=== PATIENT | female | born 1975 | race Two or more races ===

== ENCOUNTER 2019-03-01 12:41 | Inpatient (IN) | payer OTHER ==
[~2019-03-01] VITALS: Ht 160 cm; Wt 78.0 kg
[2019-03-01] MEDS ORDERED: ZOFRAN PO (13:28)
[2019-03-01] MEDS ORDERED: ULTRAM50 MG PO (13:28)
[2019-03-01] MEDS ORDERED: MULTIPLE VITAM1 EACH PO (13:29)
[2019-03-01] MEDS ORDERED: PROTONIX40 M1 PO (13:29)
[2019-03-13] MEDS ORDERED: ZOFRAN8 MG PO (08:06)
[2019-03-20] MEDS ORDERED: FLUCONAZOLE100 MG PO (09:54)
[2019-03-20] MEDS ORDERED: TRAM1TAB98 PO (09:54)
[2019-03-20] MEDS ORDERED: HYOSCYAMINE0.125 M1 SL (09:55)
== END 2019-03-20 13:12 | disposition home or self-care (01) | DRG 330 ==
LOC: O/R 03-02 15:15 → SURG 03-13 15:06 → O/R 03-13 15:15 → SURG 03-15 10:34
PROVIDERS: Urology; ADMIT Surgery
PROC: 0D1B4Z4 Bypass Ileum to Cutaneous, Percutaneous Endoscopic Approach (ICD-10-PCS; 2019-03-13)
PROC: 0TB74ZZ Excision of Left Ureter, Percutaneous Endoscopic Approach (ICD-10-PCS; 2019-03-13)
PROC: 0T778DZ Dilation of Left Ureter with Intraluminal Device, Via Natural or Artificial Opening Endoscopic (ICD-10-PCS; 2019-03-13)
PROC: 0DJD8ZZ Inspection of Lower Intestinal Tract, Via Natural or Artificial Opening Endoscopic (ICD-10-PCS; 2019-03-13)
PROC: 0DTN4ZZ Resection of Sigmoid Colon, Percutaneous Endoscopic Approach (ICD-10-PCS; principal; 2019-03-13 15:45)
PROC: 07TC4ZZ Resection of Pelvis Lymphatic, Percutaneous Endoscopic Approach (ICD-10-PCS; 2019-03-13 15:45)
DX: C19 Malignant neoplasm of rectosigmoid junction (principal); C79.19 Secondary malignant neoplasm of other urinary organs; N30.01 Acute cystitis with hematuria; B37.41 Candidal cystitis and urethritis; F43.22 Adjustment disorder with anxiety; R33.8 Other retention of urine; K63.89 Other specified diseases of intestine; I11.9 Hypertensive heart disease without heart failure; D50.0 Iron deficiency anemia secondary to blood loss (chronic); E66.09 Other obesity due to excess calories

== ENCOUNTER 2019-03-02 06:40 | Day surgery (SDC) | payer OTHER ==
[~2019-03-02 06:40] MED LIST: MULTIPLE VITAM1 EACH PO; PROTONIX40 M1 PO; ULTRAM50 MG PO; ZOFRAN PO
== END 2019-03-02 12:55 | disposition home or self-care (01) ==
LOC: AMB-ENDOS 06:40
DX: C20 Malignant neoplasm of rectum (principal); K64.8 Other hemorrhoids; K62.7 Radiation proctitis

== ENCOUNTER 2019-04-17 16:44 | Emergency (ER) | payer OTHER ==
[~2019-04-17] VITALS: Ht 160 cm; Wt 71.2 kg
[~2019-04-17 16:44] MED LIST changes: +FLUCONAZOLE100 MG PO; +HYOSCYAMINE0.125 M1 SL; +TRAM1TAB98 PO; +ZOFRAN8 MG PO
[2019-04-17] MEDS ORDERED: LISINOPRIL10 MG PO (17:06)
== END 2019-04-17 21:06 | disposition home or self-care (01) ==
LOC: ER 16:44
DX: N30.81 Other cystitis with hematuria (principal)

== ENCOUNTER 2019-04-29 04:56 | Inpatient (IN) | payer OTHER ==
[~2019-04-29] VITALS: Ht 160 cm; Wt 66.7 kg
[~2019-04-29 04:56] MED LIST changes: +LISINOPRIL10 MG PO
== END 2019-05-01 16:22 | disposition home or self-care (01) | DRG 389 ==
LOC: ER 04:56 → SURH 09:34
PROVIDERS: ADMIT Surgery
PROC: BW21ZZZ Computerized Tomography (CT Scan) of Abdomen and Pelvis (ICD-10-PCS; principal; 2019-04-29)
DX: K56.690 Other partial intestinal obstruction (principal); N39.0 Urinary tract infection, site not specified; C20 Malignant neoplasm of rectum; B96.29 Other Escherichia coli [E. coli] as the cause of diseases classified elsewhere; B95.2 Enterococcus as the cause of diseases classified elsewhere; N30.81 Other cystitis with hematuria; D50.0 Iron deficiency anemia secondary to blood loss (chronic); I11.9 Hypertensive heart disease without heart failure

== ENCOUNTER 2019-05-16 17:35 | Emergency (ER) | payer OTHER ==
[~2019-05-16] VITALS: Ht 160 cm; Wt 69.9 kg
[2019-05-16] MEDS ORDERED: ZOFRAN8 MG (17:52)
[2019-05-16] MEDS ORDERED: PEPCID AC20 MG (17:53)
== END 2019-05-16 22:47 | disposition home or self-care (01) ==
LOC: ER 17:35
DX: N39.0 Urinary tract infection, site not specified (principal); R31.0 Gross hematuria

== ENCOUNTER 2019-05-22 12:54 | Inpatient (IN) | payer OTHER ==
[~2019-05-22] VITALS: Ht 160 cm; Wt 66.7 kg
[~2019-05-22 12:54] MED LIST changes: +PEPCID AC20 MG; +ZOFRAN8 MG
[2019-05-29] MEDS ORDERED: Vitamin B-6 PO (13:02)
[2019-05-29] MEDS ORDERED: INTEGRA F CAPS1 EACH PO (13:02)
[2019-05-29] MEDS ORDERED: FLUCONAZOLE200 MG PO (13:02)
[2019-05-29] MEDS ORDERED: PEPCID AC20 MG PO (13:02)
[2019-05-29] MEDS ORDERED: INTESTINEX680 M1 PO (13:02)
[2019-05-29] MEDS ORDERED: Neurin-Sl Tablet Sl SL (13:02)
== END 2019-05-29 14:24 | disposition home or self-care (01) | DRG 660 ==
LOC: ER 12:54 → SURH 18:38
PROVIDERS: ADMIT Internal Medicine Geriatric Medicine
PROC: 0T778DZ Dilation of Left Ureter with Intraluminal Device, Via Natural or Artificial Opening Endoscopic (ICD-10-PCS; principal; 2019-05-22)
PROC: 0TP98DZ Removal of Intraluminal Device from Ureter, Via Natural or Artificial Opening Endoscopic (ICD-10-PCS; 2019-05-22)
PROC: BT1FZZZ Fluoroscopy of Left Kidney, Ureter and Bladder (ICD-10-PCS; 2019-05-22)
PROC: 8E0ZXY6 Isolation (ICD-10-PCS; 2019-05-22)
DX: T83.518A Infection and inflammatory reaction due to other urinary catheter, initial encounter (principal); B37.49 Other urogenital candidiasis; C18.8 Malignant neoplasm of overlapping sites of colon; E87.0 Hyperosmolality and hypernatremia; Z90.49 Acquired absence of other specified parts of digestive tract; D50.9 Iron deficiency anemia, unspecified; Z03.818 Encounter for observation for suspected exposure to other biological agents ruled out; I11.9 Hypertensive heart disease without heart failure
CPT/HCPCS: 74182

== ENCOUNTER 2020-06-07 21:53 | Inpatient (IN) | payer OTHER ==
[~2020-06-07] VITALS: Ht 160 cm; Wt 46.7 kg
[~2020-06-07 21:53] MED LIST changes: +FLUCONAZOLE200 MG PO; +INTEGRA F CAPS1 EACH PO; +INTESTINEX680 M1 PO; +Neurin-Sl Tablet Sl SL; +PEPCID AC20 MG PO; +Vitamin B-6 PO
[2020-06-07] MEDS ORDERED: MORPHINE SULFAT15 MG PO (22:11)
[2020-06-12] MEDS ORDERED: LISINOPRIL10 MG PO (14:07)
[2020-06-12] MEDS ORDERED: Neurin-Sl Tablet Sl SL (14:07)
[2020-06-12] MEDS ORDERED: INTEGRA F CAPS1 EACH PO (14:07)
[2020-06-12] MEDS ORDERED: PYRIDOXINE HCL100 MG PO (14:07)
[2020-06-12] MEDS ORDERED: PEPCID AC20 MG PO (14:07)
== END 2020-06-12 15:26 | disposition home or self-care (01) | DRG 378 ==
LOC: ER 21:53 → SURH 06-08 16:57
PROVIDERS: ADMIT Internal Medicine Geriatric Medicine; ATTEND Internal Medicine Geriatric Medicine
PROC: BW210ZZ Computerized Tomography (CT Scan) of Abdomen and Pelvis using High Osmolar Contrast (ICD-10-PCS; 2020-06-11)
PROC: 0DJD8ZZ Inspection of Lower Intestinal Tract, Via Natural or Artificial Opening Endoscopic (ICD-10-PCS; principal; 2020-06-12)
DX: K62.5 Hemorrhage of anus and rectum (principal); C20 Malignant neoplasm of rectum; C79.51 Secondary malignant neoplasm of bone; K62.89 Other specified diseases of anus and rectum; N13.5 Crossing vessel and stricture of ureter without hydronephrosis; G89.3 Neoplasm related pain (acute) (chronic)